=== PATIENT | male | born 1990 | race Caucasian/White ===

== ENCOUNTER 2021-01-30 15:34 | Emergency (ER) | payer OTHER ==
[~2021-01-30] VITALS: Ht 190.5 cm; Wt 81.6 kg
[2021-01-30 15:34] VITALS: BP 124/84
[2021-01-30] MEDS ORDERED: traMADol HCL 50 MG TAB PO ONE (16:45)
== END 2021-01-30 17:10 | disposition home or self-care (01) ==
LOC: EDBD 15:39 → ER 15:39
DX: S16.1XXA Strain of muscle, fascia and tendon at neck level, initial encounter (principal); M62.838 Other muscle spasm; Z87.891 Personal history of nicotine dependence; V49.9XXA Car occupant (driver) (passenger) injured in unspecified traffic accident, initial encounter; Y93.89 Activity, other specified; Y92.89 Other specified places as the place of occurrence of the external cause; Y99.8 Other external cause status
CPT/HCPCS: 70450; 72125